=== PATIENT | female | born 1985 | race Caucasian/White ===

== ENCOUNTER 2016-10-16 18:50 | Emergency (ER) | payer OTHER ==
[~2016-10-16] VITALS: Ht 165.1 cm; Wt 114.2 kg
[2016-10-16 18:56] VITALS: TEMP 37; Ht 165.1 cm; Wt 114.2 kg
[2016-10-16] MEDS ORDERED: HYDROCODONE/ACETAMOPHEN 5/325MG TAB PO STA (19:14)
--- NOTE | 2016-10-16 20:02 | EMERGENCY ROOM VISIT NOTE ---
History First contact with patient: 19:02 Chief Complaint: OTHER COMPLAINT Stated Complaint: RIGHT NIPPLE A BOOB VERY SORE INFLAMED History of Present Illness The patient is a 31 year old female who presents to the Emergency Room with complaints of pain and swelling of her right nipple that started last night. She denies any previous history of this. She denies any trauma to her breast or nipple. She is not currently breast-feeding, denies and states she is just now finishing her period. She denies any problems with the left breast. She denies fevers/chills, drainage from the nipple, painful or swollen lymph nodes. Review of Systems GENERAL: Denies fevers, chills, malaise, fatigue, unintentional changes in weight. HEENT: Denies dizziness, visual problems, hearing loss, tinnitus. Denies difficulty swallowing or oral lesions. PULMONARY: Denies cough, shortness of breath, sputum production or hemoptysis. CARDIOVASCULAR: Denies chest pain, palpitations, dyspnea on exertion, orthopnea or peripheral edema. GASTROINTESTINAL: Denies diarrhea, constipation, nausea, vomiting, or abdominal pain. GENITOURINARY: Denies dysuria, frequency, urgency or nocturia. NEUROLOGIC: Denies history of epilepsy, CVA, TIA or chronic headaches. MUSCULOSKELETAL: Denies history of joint tenderness/swelling. SKIN: Denies rashes or lesions. PSYCHIATRIC: Denies history of depression or mental illness. ENDOCRINE: Denies history of diabetes, thyroid disorders, abnormal hair growth or sexual dysfunction. Past Medical/Surgical History Medical Problems: (1) Abdominal pain (2) Acute bacterial tonsillitis (3) Acute bacterial tonsillitis (4) Back strain (5) Back strain (6) Dysphagia (7) Dysphagia (8) Influenza-like symptoms (9) Neck muscle strain (10) Neck muscle strain (11) Pneumonia (12) Sore throat (13) Tonsillitis with exudate (14) Tonsillitis with exudate (15) Torticollis (16) Torticollis Surgical Problems: (1) [place] teeth extracted Family History Cancer Diabetes mellitus FHx: lung disease Hypertension Kidney disease Kidney stones Social History Smoking Status: Current Every Day Smoker Alcohol Use: occasionally Marital Status: single Housing Status: lives alone, other Occupation Status: employed Current/Historical Medications Scheduled Cephalexin Monohydrate (Keflex), 500 MG PO QID Allergies Coded Allergies: No Known Allergies (Verified , 10/16/16) Physical Exam Vital Signs Date Time Temp Pulse Resp B/P Pulse Ox O2 Delivery O2 Flow Rate FiO2 10/16/16 20:38 76 18 140/98 98 Room Air 10/16/16 18:56 37.0 102 18 148/109 94 Room Air Physical Exam CONSTITUTIONAL: Well appearing and well nourished, obese. No acute distress. Alert and oriented X 4 with normal affect. HEENT: Normocephalic, atraumatic. Pupils equal, round and reactive to light, EOMI. NECK: Supple, full active range of motion without discomfort. RESPIRATORY: Clear to auscultation bilaterally with no wheezing, crackles, rhonchi or stridor. Equal expansion bilaterally. CARDIOVASCULAR: Regular rate and rhythm with no murmurs, rubs or gallops. Normal peripheral perfusion. No edema. CHEST WALL: There is tenderness to the right nipple and generalized pain of the right breast. There is a firm mass beneath the right nipple that is exquisitely tender to palpation. No erythema or warmth of the surrounding skin. GASTROINTESTINAL: Soft, nontender, nondistended. Bowel sounds present in all quadrants. MUSCULOSKELETAL: Full range of motion of all joints without discomfort. INTEGUMENTARY: No rash or other significant dermatologic conditions noted. NEUROLOGIC: Cranial nerves II-XII grossly intact. No focal neurologic deficits noted. Medical Decision & Procedures ER Provider Diagnostic Interpretation: RIGHT BREAST ULTRASOUND CLINICAL HISTORY: Right nipple tenderness. COMPARISON STUDY: No previous studies for comparison. TECHNIQUE: Sonography of the right breast with specific attention to the periareolar soft tissues was performed. Comparison sonography left breast was performed. FINDINGS: No definite fluid collection is identified to suggest an abscess evaluation of the soft tissues deep to the nipple is difficult due to shadowing. IMPRESSION: No definite right breast abscess identified although evaluation deep to the right nipple is difficult due to artifact. If persistent symptoms, short-term sonographic follow up is recommended. Medications Administered Medications (Trade) Dose Ordered Sig/Filippo Route Start Time Stop Time Status Last Admin Dose Admin Acetaminophen/ Hydrocodone Bitart ([place] 5/325 Tab) 1 tab NOW STAT PO 10/16/16 19:14 10/16/16 19:18 DC 10/16/16 19:29 1 TAB Cephalexin Monohydrate (Keflex Cap) 500 mg NOW ONCE PO 10/16/16 20:45 10/16/16 20:46 DC 10/16/16 21:03 500 MG Medical Decision Patient has a firm, painful lump beneath the right nipple that started acutely, concerning for possible abscess versus ductal obstruction. No evidence of cellulitis noted. Ultrasound ordered to evaluate for abscess, no obvious fluid collection noted. She was slightly tachycardic on arrival, this is resolved after pain control. Given concern for possible infection, will place patient on Keflex. Patient also encouraged to use warm compresses and NSAIDs for pain control. Patient instructed to follow closely with her PCP, and given strict return precautions should her symptoms worsen, she verbalized understanding. Impression Primary Impression: Pain of right breast Departure Information Dispostion Home / Self-Care Condition GOOD Prescriptions Cephalexin Monohydrate (Keflex) 500 Mg Cap 500 MG PO QID for 7 Days, #28 CAP Prov: Lauren Jarvis CRNP 10/16/16 Referrals Delisa Watkins DO (PCP) Patient Instructions ED Infec Breast, [facility] Additional Instructions Follow-up with her PCP on Wednesday to have the area rechecked. Apply warm compresses to the area for comfort. You may take ibuprofen 600 mg every 6-8 hours as needed for pain. Please return to the ER for worsening symptoms, including severe worsening pain , increased redness or swelling, pus drainage, streaking, fever/chills, or any other concerns.
--- NOTE | 2016-10-16 20:18 | DIAGNOSTIC IMAGING REPORT ---
RIGHT BREAST ULTRASOUND CLINICAL HISTORY: Right nipple tenderness. COMPARISON STUDY: No previous studies for comparison. TECHNIQUE: Sonography of the right breast with specific attention to the periareolar soft tissues was performed. Comparison sonography left breast was performed. FINDINGS: No definite fluid collection is identified to suggest an abscess evaluation of the soft tissues deep to the nipple is difficult due to shadowing. IMPRESSION: No definite right breast abscess identified although evaluation deep to the right nipple is difficult due to artifact. If persistent symptoms, short-term sonographic follow up is recommended. Electronically signed by: Sadi Dior M.D. 10/16/2016 8:17 PM Dictated Date/Time: 10/16/2016 8:13 PM
[2016-10-16 20:38] VITALS: BP 140/98; PULSE 76; O2SAT 98
[2016-10-16] MEDS ORDERED: CEPH500C PO (20:44)
[2016-10-16] MEDS ORDERED: CEPHALEXIN MONOHYDRATE 250 MG CAP PO ONE (20:45)
== END 2016-10-16 21:07 | disposition home or self-care (01) ==
LOC: C.EDB 18:51 → C.EDD 21:07
DX: N63 Unspecified lump in breast (principal); N64.4 Mastodynia; Z87.01 Personal history of pneumonia (recurrent); Z80.9 Family history of malignant neoplasm, unspecified; Z83.3 Family history of diabetes mellitus; Z82.49 Family history of ischemic heart disease and other diseases of the circulatory system; Z84.1 Family history of disorders of kidney and ureter; F17.210 Nicotine dependence, cigarettes, uncomplicated

== ENCOUNTER 2017-01-19 20:36 | Emergency (ER) | payer OTHER ==
[~2017-01-19] VITALS: Ht 165.1 cm; Wt 116.7 kg
[2017-01-19 20:48] VITALS: TEMP 36.6; Ht 165.1 cm; Wt 116.7 kg
[2017-01-19] MEDS ORDERED: KETOROLAC TROMETHAMINE 60 MG/2 ML VIAL IM STA (21:09)
[2017-01-19] MEDS ORDERED: MULT-506 PO (21:10)
[2017-01-19] MEDS ORDERED: IBUP-103 PO (21:10)
[2017-01-19] MEDS ORDERED: PRED50TA PO (21:11)
[2017-01-19] MEDS ORDERED: CYCL10TA6 PO (21:11)
[2017-01-19] MEDS ORDERED: NORCO 5/325MG HOME PACK PO ONE (21:15)
[2017-01-19 21:30] VITALS: BP 134/72; PULSE 72; O2SAT 98
--- NOTE | 2017-01-20 00:08 | EMERGENCY ROOM VISIT NOTE ---
ED Visit Note First contact with patient: 20:57 CHIEF COMPLAINT: Low back pain HISTORY OF PRESENT ILLNESS: This 31-year-old female patient presents to the emergency department complaining of pain in the low back which began several years ago. The patient states that she has intermittent flareups of low back pain and does follow with her primary care physician and a chiropractor for this. She states that she has had some slowly worsening symptoms over the past several days without distinct injury or trauma. The pain was gradual in onset, is now constant and worse with movement. The patient notes the pain as dull and a 6/10. The patient has taken ibuprofen without significant relief of the pain. The patient denies any loss of control of their bowel or bladder functions. There has been no leg numbness or weakness, and no change in sensation. No nausea or vomiting or abdominal pain. No chest pain or shortness of breath. No dysuria or increased urinary frequency. No history of back surgery. REVIEW OF SYSTEMS: A review of systems was performed with positives and pertinent negatives listed in the history of present illness. All other systems were reviewed and are negative. ALLERGIES: No known allergies MEDICATIONS: No chronic medications PMH: Otherwise healthy SOCIAL HISTORY: Employed and lives locally PHYSICAL EXAM: VITALS: Vitals are noted on the nurse's note and reviewed by myself. Vital signs stable. GENERAL: White female, in no acute distress, nondiaphoretic, well-developed well -nourished. SKIN: The skin was without rashes, erythema, edema, or bruising. Capillary refill less than 2 seconds. NECK: Supple without nuchal rigidity. No cervical spine tenderness. No paraspinous muscle tenderness. HEART: Regular rate and rhythm without murmurs gallops or rubs. LUNGS: Clear to auscultation bilaterally without wheezes, rales or rhonchi. ABDOMEN: Positive bowel sounds x 4. Normal tympanic percussion. Soft, nontender, without masses or organomegaly. Germain sign negative. MUSCULOSKELETAL: No muscle atrophy, erythema, or edema noted of the back. There is positive tenderness over the lumbar spinous processes. There is no tenderness over the paraspinous muscles. There is no tenderness over the thoracic spine paraspinous muscles. There are noted muscle spasms present in the lower spine. The patient is slow to move around with maximum tenderness with leaning forward. Negative straight leg raise test. NEURO: Patient was alert and oriented to person place and time. Normal sensation to light and sharp touch. Deep tendon reflexes 2+ in the lower extremities. Dorsalis pedis pulse 2+ bilaterally. Strength 5/5 and equal in the bilateral lower extremities. EMERGENCY DEPARTMENT COURSE: Physical exam and history were performed. Nursing notes and EMR were reviewed. The patient appears to have low back pain off-and-on for the past few years. This appears to be exacerbated today, prompting her presentation. On examination the patient does have some muscle spasm in the lower spine where she is maximally tender. She does not have neurologic deficit or evidence of infection/cauda equina. I discussed options of care with the patient, and she would like to defer imaging at this time. This does seem reasonable as she states that she has had relatively recent x- rays as an outpatient. The patient will be given 60 mg IM Toradol. I will also provide her a home pack of Vicodin. She'll be given prescriptions for Flexeril and prednisone. She will need to follow with her PCP for further care and management. She may be a good candidate for physical therapy if symptoms persist. She was otherwise invited back to the ER with any new, worsening, or concerning symptoms. Problem List Medical Problems: (1) Abdominal pain Status: Resolved (2) Acute bacterial tonsillitis Status: Resolved (3) Acute bacterial tonsillitis Status: Resolved (4) Back strain Status: Resolved (5) Back strain Status: Resolved (6) Dysphagia Status: Resolved (7) Dysphagia Status: Resolved (8) Influenza-like symptoms Status: Resolved (9) Neck muscle strain Status: Resolved (10) Neck muscle strain Status: Resolved (11) Pneumonia Status: Resolved (12) Sore throat Status: Resolved (13) Tonsillitis with exudate Status: Resolved (14) Tonsillitis with exudate Status: Resolved (15) Torticollis Status: Resolved (16) Torticollis Status: Resolved Surgical Problems: (1) [place] teeth extracted Status: Resolved Current/Historical Medications Scheduled Cyclobenzaprine Hcl (Flexeril), 10 MG PO TID Multivitamin (Multivitamin), 1 TAB PO DAILY Prednisone (Prednisone), 50 MG PO DAILY Scheduled PRN Ibuprofen Tab (Advil), 400-600 MG PO Q6H PRN for Pain Allergies Coded Allergies: No Known Allergies (Verified , 01/19/17) Vital Signs Date Time Temp Pulse Resp B/P (MAP) Pulse Ox O2 Delivery O2 Flow Rate FiO2 01/19/17 21:30 72 16 134/72 98 01/19/17 20:48 36.6 75 20 146/97 98 Room Air Medications Administered Medications (Trade) Dose Ordered Sig/Filippo Route Start Time Stop Time Status Last Admin Dose Admin Ketorolac Tromethamine (Toradol Inj) 60 mg NOW STAT IM 01/19/17 21:09 01/19/17 21:10 DC 01/19/17 21:09 60 MG Acetaminophen/ Hydrocodone Bitart ([place] 5/325mg Home Pack) 1 homepack UD ONCE PO 01/19/17 21:15 01/19/17 21:16 DC 01/19/17 21:15 1 HOMEPACK Departure Information Impression Primary Impression: Low back pain Dispostion Home / Self-Care Condition GOOD Prescriptions Prednisone (Prednisone) 50 Mg Tab 50 MG PO DAILY for 4 Days, #4 TAB Prov: Junaid Hurd PA-C 01/19/17 Cyclobenzaprine Hcl (FLEXERIL) 10 Mg Tab 10 MG PO TID for 5 Days, #15 TAB Prov: Junaid Hurd PA-C 01/19/17 Referrals No Doctor, Assigned Forms HOME CARE DOCUMENTATION FORM, Work Instructions, Additional Instructions: Pt seen in ER on 01/19/17 IMPORTANT VISIT INFORMATION Patient Instructions [facility] Additional Instructions You were seen and evaluated today on an emergency basis only. This is not a substitute for, or an effort to provide, complete comprehensive medical care. It is not possible to recognize and treat all injuries or illnesses in a single emergency department visit. For this reason it is recommended that you followup with your primary care physician within the next week if symptoms persist. For baseline pain relief you may alternate ibuprofen and acetaminophen every 4 hours for pain control. Take 600 mg ibuprofen (Advil) and then 4 hours later take 1000 mg acetaminophen (Tylenol). Do not take more than 3000 mg acetaminophen in a single day. [place] (hydrocodone/acetaminophen) 5/325 mg (homepack) ONE tablet by mouth every 6 hours as needed for worsening breakthrough pain. Do not drink or drive on [place]. This medication will likely make you tired. Do not take [place] and Tylenol at the same time as both contain acetaminophen. [place] may cause constipation. You may wish to take an [id number] stool softener like Colace if this occurs. Flexeril 1 tablet up to 3 times a day as needed for muscle spasms. No driving, working, or alcohol use with Flexeril. Take prednisone as prescribed You are welcome to return to the emergency department anytime with new, worsening, or concerning symptoms. Work Instructions Additional Work Instructions: Pt seen in ER on 01/19/17
== END 2017-01-19 21:49 | disposition home or self-care (01) ==
LOC: C.EDB 20:37 → C.EDD 21:49
DX: M54.5 Low back pain (principal); G89.29 Other chronic pain; Z87.01 Personal history of pneumonia (recurrent); Z79.899 Other long term (current) drug therapy

== ENCOUNTER 2017-02-19 12:02 | Emergency (ER) | payer OTHER ==
[~2017-02-19] VITALS: Ht 165.1 cm; Wt 112.9 kg
[~2017-02-19 12:02] MED LIST: IBUP-103 PO; MULT-506 PO
[2017-02-19 12:12] VITALS: TEMP 36.7; Ht 165.1 cm; Wt 112.9 kg
[2017-02-19] MEDS ORDERED: NAPR500T3 PO (12:32)
[2017-02-19] MEDS ORDERED: CYM30 PO (12:32)
[2017-02-19] MEDS ORDERED: ATV1 PO (12:32)
[2017-02-19] MEDS ORDERED: DROS1TAB24 PO (12:32)
[2017-02-19] MEDS ORDERED: OPTIRAY 320 IV PRN (12:45)
[2017-02-19 13:14] LABS: URINE APPEARANCE CLEAR (CLEAR); URINE BILIRUBIN NEG (NEG); URINE COLOR YELLOW; URINE EPITHELIAL CELL AUTO >30 /lpf (0-5); URINE NITRITE NEG (NEG); URINE SPECIFIC GRAVITY 1.021 (1.000-1.030); UROBILINOGEN NEG (NEG)
[2017-02-19 13:14] LABS: BASO % 0.4 %; BASO ABS # 0.03 K/uL (0-0.2); COMPLETE YES; EOS % 1.3 %; HEMATOCRIT 42.1 % (37-47); IG% 0.1 %; LYMPH % 25.8 %; LYMPH ABS # 1.91 K/uL (1.2-3.4); MEAN CELL VOLUME 86.6 fL (80-100); MEAN CORPUSCULAR HEMOGLOBIN 30.2 pg (25-34); MEAN CORPUSCULAR HGB CONC 34.9 g/dl (32-36); MONO % 6.5 %; NEUT % 65.9 %; PLATELET COUNT 321 K/uL (130-400); RED BLOOD COUNT 4.86 M/uL (4.2-5.4); WHITE BLOOD COUNT 7.41 K/uL (4.8-10.8)
[2017-02-19 13:19] LABS: MANUAL MICROSCOPIC REQUIRED? NO; REVIEW REQ? NO
[2017-02-19 13:33] LABS: ALT/SGPT 21 U/L (12-78); AST/SGOT 8 U/L (15-37); BLOOD UREA NITROGEN 10 mg/dl (7-18); BUN/CREATININE RATIO 12.5 (10-20); CALCIUM 9.4 mg/dl (8.5-10.1); CARBON DIOXIDE 23 mmol/L (21-32); CHLORIDE 110 mmol/L (98-107); CREATININE 0.76 mg/dl (0.60-1.20); GLUCOSE 91 mg/dl (70-99); SODIUM 139 mmol/L (136-145)
[2017-02-19 13:35] LABS: ALKALINE PHOSPHATASE 116 U/L (45-117)
[2017-02-19] MEDS ORDERED: ONDANSETRON INJ 2 MG/ML 2 ML VIAL IV STA (13:49)
--- NOTE | 2017-02-19 15:33 | DIAGNOSTIC IMAGING REPORT ---
ABD/PELVIS IV AND ORAL CONT CLINICAL HISTORY: 31 years-old Female presenting with abd pain and diarrhea eval for colitis. TECHNIQUE: Multidetector CT of the abdomen and pelvis was performed after the administration of oral and intravenous contrast. IV contrast: 120 mL of Optiray 320. A dose lowering technique was used consistent with the principles of ALARA (as low as reasonably achievable). COMPARISON: 09/16/2009. CT DOSE (mGy.cm): The estimated cumulative dose is 1703.17 mGy.cm. FINDINGS: [employer] topogram: Unremarkable. Lung bases: Mosaic attenuation at the lung bases likely suggest small airways disease. This is more prominent on the current exam comparison to prior. Normal heart size. No pericardial or pleural effusion. Liver: Normal morphology. No liver lesion. Patent hepatic vasculature. Biliary: No intrahepatic or extrahepatic biliary ductal dilatation. Normal gallbladder. Pancreas: Normal. Spleen: Normal. Adrenal glands: Normal. Kidneys and ureters: Normal. No hydronephrosis. Bladder: Incompletely evaluated secondary to underdistention. Pelvic organs: Uterus normal. Ovaries prominent bilaterally with multiple follicles/functional cysts, the largest on the left measuring 2.5 cm. Bowel: Normal appendix. No bowel obstruction. Oral contrast has transited to the rectum. Allowing for under distention of the colon, no significant bowel wall thickening is apparent. Peritoneal cavity: No free fluid or intraperitoneal gas. Vasculature: Aorta and IVC patent and normal in caliber. Lymph nodes: No enlarged lymph nodes in the abdomen or pelvis. Abdominal wall: Normal. Musculoskeletal: Normal. IMPRESSION: 1. No evidence of colitis or bowel pathology. Normal appendix. 2. Prominent ovaries bilaterally with multiple follicles/functional cysts. This appearance is likely within the range of normal, however, the ovaries are better evaluated with pelvic ultrasound. 3. Mosaic attenuation at the lung bases suggest small airways disease. Electronically signed by: Sumeet Cortez M.D. 02/19/2017 3:31 PM Dictated Date/Time: 02/19/2017 3:25 PM
[2017-02-19] MEDS ORDERED: METRONIDAZOLE 250 MG TAB PO STA (16:36)
[2017-02-19 17:27] VITALS: BP 128/79; PULSE 65; O2SAT 99
--- NOTE | 2017-02-19 17:32 | DIAGNOSTIC IMAGING REPORT ---
PELVIC COMPLETE NON OB HISTORY: 31 years-old Female acute lower pelvic pain. COMPARISON: CT abdomen and pelvis 02/19/2017 TECHNIQUE: Multiple real-time static images of the deep pelvic structures were obtained transabdominally and transvaginally assessing grayscale appearance, color and spectral analysis FINDINGS: TRANSABDOMINAL: Anteflexed uterus is seen, 8.9 x 4.8 x 5.0 cm. Endometrium is within normal limits, 0.6 cm. Right ovary measures 3.1 x 1.7 x 1.5 cm with arterial inflow documented. Left ovary measures 5.2 x 3.1 x 3.5 cm. Hypoechoic structure within the left ovary is seen, 2.8 x 2.2 x 2.7 cm. Arterial inflow is documented within the left ovary. TRANSVAGINAL: Heterogenous hypoechoic lesion of the intramural posterior fundal uterus is seen measuring up to 1.6 cm compatible with fibroid. Additional smaller fibroids noted. Uterus measures 8.8 x 5.1 x 6.1 cm. Endometrium measures 0.7 cm. Right ovary measures 4.6 x 2.7 x 3.5 cm. Arterial inflow is seen within the right ovary. Thick walled centrally hypoechoic lesion of the right ovary is seen measuring up to 1.3 cm suggesting involuting follicle. Left ovary measures 4.3 x 2.1 x 4.0 cm. Follicle left ovary measures up to 2.1 cm. Arterial inflow is documented within the left ovary. No significant free pelvic fluid. IMPRESSION: 1. No evidence of ovarian torsion. 2. Several intramural uterine fibroids are seen, largest of which measures 1.6 cm within the posterior fundal uterus. 3. Probable involuting follicle of the right ovary, 1.3 cm. The above report was generated using voice recognition software. It may contain grammatical, syntax or spelling errors. Electronically signed by: Jim Mays M.D. 02/19/2017 5:30 PM Dictated Date/Time: 02/19/2017 5:26 PM
[2017-02-19] MEDS ORDERED: METR-163 PO (17:46)
--- NOTE | 2017-02-19 18:58 | EMERGENCY ROOM VISIT NOTE ---
History Report prepared by Eliu: Aric Wong Under the Supervision of: Dr. Hemant García M.D. First contact with patient: 12:23 Chief Complaint: ABDOMINAL PAIN Stated Complaint: SEVERE STOMACH PAIN, COFFEE GROUND STOOLS History of Present Illness The patient is a 31 year old female who presents to the Emergency Room with complaints of episodes of abdominal pain that started 3 days ago. She says that the episodes last anywhere from a few seconds to a few minutes, and is severe. The patient notes that nothing in particular brings the pain on, and episodes have been occurring around once per hour. She says that an episode just occurred in the waiting room. She says that the pain is as severe as contractions that she had during her . The patient states that the pain is right in the middle, and does not radiate to her sides. She has not been eating, and the pain wakes her up out of her sleep. The patient adds that the pain makes her sweat and shake. She says that she has had diarrhea the past few days, but she has to push hard for anything to come out. Occasionally, the diarrhea has looked like coffee grounds with a black color. The patient says that she vomited on the first day of symptoms because she was in so much pain, but she has not vomited since then. There was no blood in her vomit, and the vomit looked like mucous. She states that 2 years ago, she had similar episodes of pain that lasted months, but only in the morning. She eventually went to see a doctor for it, and was going to be tested for Crohn's Disease, but she left before getting the equipment for a stool sample. The pain went away on its own. She denies any fevers or urinary symptoms. She notes that the only thing that has decreased her pain has been smoking marijuana. She has had no abdominal surgeries, and has no history of C-sections. The patient says that she used to take Ibuprofen for chronic back problems, but was recently prescribed Naproxen, so she does not take Ibuprofen anymore. She has rarely needed to use the Naproxen either. Source of History: patient Onset: 3 days ago Position: abdomen Symptom Intensity: severe Timing: other (episodes) Modifying Factors (Relieving): other (marijuana) Associated Symptoms: + vomiting, + diarrhea, No fevers, No urinary symptoms Note: Associated symptoms: Pain makes her sweat and shake. Stools have occasionally looked like coffee grounds and black. No blood in vomit. Review of Systems See HPI for pertinent positives & negatives. A total of 10 systems reviewed and were otherwise negative. Past Medical & Surgical Medical Problems: (1) Abdominal pain (2) Acute bacterial tonsillitis (3) Acute bacterial tonsillitis (4) Back strain (5) Back strain (6) Dysphagia (7) Dysphagia (8) Influenza-like symptoms (9) Neck muscle strain (10) Neck muscle strain (11) Pneumonia (12) Sore throat (13) Tonsillitis with exudate (14) Tonsillitis with exudate (15) Torticollis (16) Torticollis Surgical Problems: (1) [place] teeth extracted Family History Cancer Diabetes mellitus FHx: lung disease Hypertension Kidney disease Kidney stones Social History Smoking Status: Current Every Day Smoker Alcohol Use: occasionally Drug Use: marijuana Marital Status: single Housing Status: lives alone, other Occupation Status: employed Current/Historical Medications Scheduled Drospirenone-Ethinyl Estradiol (An), 1 TAB PO DAILY Duloxetine HCl (Duloxetine HCl), 30 MG PO BID Lorazepam (Lorazepam), 1 TAB PO HS Metronidazole (Flagyl), 500 MG PO TID Scheduled PRN Naproxen (Naproxen), 500 MG PO BID PRN for Pain Allergies Coded Allergies: No Known Allergies (Verified , 01/19/17) Physical Exam Vital Signs Date Time Temp Pulse Resp B/P (MAP) Pulse Ox O2 Delivery O2 Flow Rate FiO2 02/19/17 17:27 65 16 128/79 99 Room Air 02/19/17 15:28 75 20 115/78 95 Room Air 02/19/17 14:04 72 20 112/75 95 Room Air 02/19/17 12:12 36.7 84 20 142/87 95 Room Air Physical Exam Constitutional: Vital signs reviewed. Eyes: Pupils are equal round reactive to light. Conjunctiva are noninjected. ENT: Pharynx is clear without erythema or exudate. Mucous membranes are moist. Neck supple without meningeal signs. Respiratory: Clear to auscultation bilaterally. Breath sounds are equal bilaterally. Cardiovascular: Regular rate and rhythm. No rubs or gallops. GI: Diffuse mild tenderness without guarding. Soft and nondistended. Bowel sounds are present. Rectal: Guaiac negative brown stool. Musculoskeletal: No peripheral edema. No lower extremity tenderness. Integumentary: No cyanosis. Neurological: The patient is awake and alert. No focal deficits. Psychiatric: Normal affect. Medical Decision & Procedures ER Provider Diagnostic Interpretation: Radiology results as stated below per my review and the radiologist's interpretation: ABD/PELVIS IV AND ORAL CONT CLINICAL HISTORY: 31 years-old Female presenting with abd pain and diarrhea eval for colitis. TECHNIQUE: Multidetector CT of the abdomen and pelvis was performed after the administration of oral and intravenous contrast. IV contrast: 120 mL of Optiray 320. A dose lowering technique was used consistent with the principles of ALARA (as low as reasonably achievable). COMPARISON: 09/16/2009. CT DOSE (mGy.cm): The estimated cumulative dose is 1703.17 mGy.cm. FINDINGS: Shop Repairer topogram: Unremarkable. Lung bases: Mosaic attenuation at the lung bases likely suggest small airways disease. This is more prominent on the current exam comparison to prior. Normal heart size. No pericardial or pleural effusion. Liver: Normal morphology. No liver lesion. Patent hepatic vasculature. Biliary: No intrahepatic or extrahepatic biliary ductal dilatation. Normal gallbladder. Pancreas: Normal. Spleen: Normal. Adrenal glands: Normal. Kidneys and ureters: Normal. No hydronephrosis. Bladder: Incompletely evaluated secondary to underdistention. Pelvic organs: Uterus normal. Ovaries prominent bilaterally with multiple follicles/functional cysts, the largest on the left measuring 2.5 cm. Bowel: Normal appendix. No bowel obstruction. Oral contrast has transited to the rectum. Allowing for under distention of the colon, no significant bowel wall thickening is apparent. Peritoneal cavity: No free fluid or intraperitoneal gas. Vasculature: Aorta and IVC patent and normal in caliber. Lymph nodes: No enlarged lymph nodes in the abdomen or pelvis. Abdominal wall: Normal. Musculoskeletal: Normal. IMPRESSION: 1. No evidence of colitis or bowel pathology. Normal appendix. 2. Prominent ovaries bilaterally with multiple follicles/functional cysts. This appearance is likely within the range of normal, however, the ovaries are better evaluated with pelvic ultrasound. 3. Mosaic attenuation at the lung bases suggest small airways disease. Electronically signed by: Sumeet Cortez M.D. 02/19/2017 3:31 PM Dictated Date/Time: 02/19/2017 3:25 PM PELVIC COMPLETE NON OB HISTORY: 31 years-old Female acute lower pelvic pain. COMPARISON: CT abdomen and pelvis 02/19/2017 TECHNIQUE: Multiple real-time static images of the deep pelvic structures were obtained transabdominally and transvaginally assessing grayscale appearance, color and spectral analysis FINDINGS: TRANSABDOMINAL: Anteflexed uterus is seen, 8.9 x 4.8 x 5.0 cm. Endometrium is within normal limits, 0.6 cm. Right ovary measures 3.1 x 1.7 x 1.5 cm with arterial inflow documented. Left ovary measures 5.2 x 3.1 x 3.5 cm. Hypoechoic structure within the left ovary is seen, 2.8 x 2.2 x 2.7 cm. Arterial inflow is documented within the left ovary. TRANSVAGINAL: Heterogenous hypoechoic lesion of the intramural posterior fundal uterus is seen measuring up to 1.6 cm compatible with fibroid. Additional smaller fibroids noted. Uterus measures 8.8 x 5.1 x 6.1 cm. Endometrium measures 0.7 cm. Right ovary measures 4.6 x 2.7 x 3.5 cm. Arterial inflow is seen within the right ovary. Thick walled centrally hypoechoic lesion of the right ovary is seen measuring up to 1.3 cm suggesting involuting follicle. Left ovary measures 4.3 x 2.1 x 4.0 cm. Follicle left ovary measures up to 2.1 cm. Arterial inflow is documented within the left ovary. No significant free pelvic fluid. IMPRESSION: 1. No evidence of ovarian torsion. 2. Several intramural uterine fibroids are seen, largest of which measures 1.6 cm within the posterior fundal uterus. 3. Probable involuting follicle of the right ovary, 1.3 cm. The above report was generated using voice recognition software. It may contain grammatical, syntax or spelling errors. Electronically signed by: Jim Mays M.D. 02/19/2017 5:30 PM Dictated Date/Time: 02/19/2017 5:26 PM Laboratory Results 02/19/17 12:56 Red Blood Count 4.86, Mean Corpuscular Volume 86.6, Mean Corpuscular Hemoglobin 30.2, Mean Corpuscular Hemoglobin Concent 34.9, Mean Platelet Volume 10.0, Neutrophils (%) (Auto) 65.9, Lymphocytes (%) (Auto) 25.8, Monocytes (%) (Auto) 6.5, Eosinophils (%) (Auto) 1.3, Basophils (%) (Auto) 0.4, Neutrophils # (Auto) 4.88, Lymphocytes # (Auto) 1.91, Monocytes # (Auto) 0.48, Eosinophils # (Auto) 0.10, Basophils # (Auto) 0.03 02/19/17 12:56 Test 02/19/17 12:55 02/19/17 12:56 Urine Color YELLOW Urine Appearance CLEAR (CLEAR) Urine pH 6.0 (4.5-7.5) Urine Specific Carver 1.021 (1.000-1.030) Urine Protein 2+ (NEG) Urine Glucose (UA) NEG (NEG) Urine Ketones NEG (NEG) Urine Occult Blood NEG (NEG) Urine Nitrite NEG (NEG) Urine Bilirubin NEG (NEG) Urine Urobilinogen NEG (NEG) Urine Leukocyte Esterase TRACE (NEG) Urine WBC (Auto) 10-30 /hpf (0-5) Urine RBC (Auto) 5-10 /hpf (0-4) Urine Hyaline Casts (Auto) 5-10 /lpf (0-5) Urine Epithelial Cells (Auto) >30 /lpf (0-5) Urine Bacteria (Auto) NEG (NEG) Urine Test NEG (NEG) White Blood Count 7.41 K/uL (4.8-10.8) Red Blood Count 4.86 M/uL (4.2-5.4) Hemoglobin 14.7 g/dL (12.0-16.0) Hematocrit 42.1 % (37-47) Mean Corpuscular Volume 86.6 fL (80-100) Mean Corpuscular Hemoglobin 30.2 pg (25-34) Mean Corpuscular Hemoglobin Concent 34.9 g/dl (32-36) Platelet Count 321 K/uL (130-400) Mean Platelet Volume 10.0 fL (7.4-10.4) Neutrophils (%) (Auto) 65.9 % Lymphocytes (%) (Auto) 25.8 % Monocytes (%) (Auto) 6.5 % Eosinophils (%) (Auto) 1.3 % Basophils (%) (Auto) 0.4 % Neutrophils # (Auto) 4.88 K/uL (1.4-6.5) Lymphocytes # (Auto) 1.91 K/uL (1.2-3.4) Monocytes # (Auto) 0.48 K/uL (0.11-0.59) Eosinophils # (Auto) 0.10 K/uL (0-0.5) Basophils # (Auto) 0.03 K/uL (0-0.2) RDW Standard Deviation 46.4 fL (36.4-46.3) RDW Coefficient of Variation 14.5 % (11.5-14.5) Immature Granulocyte % (Auto) 0.1 % Immature Granulocyte # (Auto) 0.01 K/uL (0.00-0.02) Anion Gap 6.0 mmol/L (3-11) Est Creatinine Clear Calc Drug Dose 134.4 ml/min Estimated GFR () 121.1 Estimated GFR (Non- 104.5 BUN/Creatinine Ratio 12.5 (10-20) Calcium Level 9.4 mg/dl (8.5-10.1) Total Bilirubin 0.3 mg/dl (0.2-1) Direct Bilirubin < 0.1 mg/dl (0-0.2) Aspartate Amino Transf (AST/SGOT) 8 U/L (15-37) Alanine Aminotransferase (ALT/SGPT) 21 U/L (12-78) Alkaline Phosphatase 116 U/L (45-117) Total Protein 8.3 gm/dl (6.4-8.2) Albumin 3.7 gm/dl (3.4-5.0) Lipase 164 U/L (73-393) Laboratory results as reviewed by me. Medications Administered Medications (Trade) Dose Ordered Sig/Filippo Route Start Time Stop Time Status Last Admin Dose Admin Ondansetron HCl (Zofran Inj) 4 mg NOW STAT IV 02/19/17 13:49 02/19/17 13:50 DC 02/19/17 13:57 4 MG Metronidazole (Flagyl Tab) 500 mg NOW STAT PO 02/19/17 16:36 02/19/17 16:37 DC 02/19/17 17:31 500 MG ED Course 1226: The patient was evaluated in room C5. A complete history and physical exam was performed. 1349: Ordered Zofran Inj 4 mg IV. 1542: I reevaluated the patient and she says that the pain still keeps coming in waves but she has no pain currently. I discussed the test results with her. We will do a pelvic ultrasound. 1636: Ordered Flagyl Tab 500 mg PO. 175: I reevaluated the patient and talked about the test results with her. The patient verbally expressed understanding and agreement with the treatment plan. The patient will be discharged. Medical Decision This is a 31-year-old female who presents with abdominal pain and diarrhea. Differential diagnosis includes food borne illness, gastroenteritis, dehydration , irritable bowel syndrome, inflammatory bowel disease, C. difficile infection. I did perform a limited focused review of portions of the patient's old chart on the electronic medical record. The patient was seen here last month for low back pain. She was discharged on Prednisone and Flexeril. I did evaluate the patient as noted above. IV access was established. I did treat patient with Zofran IV. I did order and review the patient's blood work as noted in the electronic medical record. Her white blood cell count is not elevated. Urinalysis was obtained but appears to be a contaminated specimen. She denies any urinary symptoms. Urine test was negative. I did order a CT of the abdomen and pelvis. I did review the images myself as well as the radiology report as described above.There is no evidence of acute process on the CT scan. She was noted to have multiple pelvic cysts. I did reevaluate the patient. She stated that she still has occasional pain. I did order a pelvic ultrasound to evaluate for torsion. She has fibroids. I did also order stool testing. Her C. difficile antigen testing came back positive. I did treat her with Flagyl. I did discuss the test results with the patient. She was discharged home with a prescription for Flagyl and will follow up with her doctor and manager banking. Medication Reconcilliation Current Medication List: was personally reviewed by me Blood Pressure Screening Patient's blood pressure: Elevated blood pressure Impression Primary Impression: Abdominal pain Additional Impressions: C. difficile diarrhea Uterine fibroid Scribe Attestation The scribe's documentation has been prepared under my direct and personally reviewed by me in its entirety. I confirm that the note above accurately reflects all work, treatment, procedures, and medical decision making performed by me. Departure Information Dispostion Home / Self-Care Prescriptions Metronidazole (Flagyl) 500 Mg Tab 500 MG PO TID for 10 Days, #30 TAB Prov: Hemant García M.D. 02/19/17 Referrals Delisa Watkins DO (PCP) Forms Call Back Authorization, HOME CARE DOCUMENTATION FORM, IMPORTANT VISIT INFORMATION, Work Instructions Patient Instructions Clostridium Difficile Infec, My [facility] Additional Instructions You have been examined and treated today on an emergency basis only. This is not a substitute for, or an effort to provide, complete comprehensive medical care. It is impossible to recognize and treat all injuries or illnesses in a single emergency department visit. It is therefore important that you follow up closely with your physician. Call as soon as possible for an appointment. Return for worsening symptoms or if you develop fever or any other concerning symptoms. Avoid any alcohol while taking Flagyl. Problem Qualifiers Primary Impression: Abdominal pain Abdominal location: generalized Qualified Codes: R10.84 - Generalized abdominal pain Additional Impressions: Uterine fibroid Uterine leiomyoma location: unspecified location Qualified Codes: D25.9 - Leiomyoma of uterus, unspecified
== END 2017-02-19 18:02 | disposition home or self-care (01) ==
LOC: C.EDB 12:04 → C.EDC 18:02
DX: R10.84 Generalized abdominal pain (principal); A04.7 Enterocolitis due to Clostridium difficile; D25.9 Leiomyoma of uterus, unspecified; Z87.01 Personal history of pneumonia (recurrent); Z80.9 Family history of malignant neoplasm, unspecified; Z83.3 Family history of diabetes mellitus; Z83.6 Family history of other diseases of the respiratory system; Z84.1 Family history of disorders of kidney and ureter; Z82.49 Family history of ischemic heart disease and other diseases of the circulatory system; F17.210 Nicotine dependence, cigarettes, uncomplicated; Z79.3 Long term (current) use of hormonal contraceptives; Z79.899 Other long term (current) drug therapy

== ENCOUNTER 2018-02-10 20:01 | Emergency (ER) | payer OTHER ==
[~2018-02-10] VITALS: Ht 165.1 cm; Wt 110.0 kg
[~2018-02-10 20:01] MED LIST changes: +ATV1 PO; +CYM30 PO; +DROS1TAB24 PO; -IBUP-103 PO; -MULT-506 PO; +NAPR-1231 PO
[2018-02-10 20:08] VITALS: Ht 165.1 cm; Wt 110.0 kg
[2018-02-10] MEDS ORDERED: LIDOCAINE/EPINEPHRINE 1% 20 ML VIAL INFIL ONE (21:15)
[2018-02-10] MEDS ORDERED: SULF800T23 PO (22:06)
--- NOTE | 2018-02-10 22:07 | EMERGENCY ROOM VISIT NOTE ---
History First contact with patient: 21:07 Chief Complaint: OTHER COMPLAINT Stated Complaint: PAINFUL LUMP ON RIGHT BREAST History of Present Illness The patient is a 32 year old female who presents to the Emergency Room with complaints of a painful lump on her right breast. The patient believes this may be an infected hair follicle, because she states that she had one years ago. She states that she has had an area of swelling and pain for the past 2 weeks. She has been squeezing the area daily and reports that a small amount of pus comes out each time. She denies any fevers or chills. She rates the discomfort a 4/10. Review of Systems A complete 10 point review of systems was reviewed with the patient with pertinent positives and negatives as per history of present illness. All else were negative. Past Medical/Surgical History Medical Problems: (1) Abdominal pain (2) Acute bacterial tonsillitis (3) Acute bacterial tonsillitis (4) Back strain (5) Back strain (6) Dysphagia (7) Dysphagia (8) Influenza-like symptoms (9) Neck muscle strain (10) Neck muscle strain (11) Pneumonia (12) Sore throat (13) Tonsillitis with exudate (14) Tonsillitis with exudate (15) Torticollis (16) Torticollis Surgical Problems: (1) [place] teeth extracted Family History Cancer Diabetes mellitus FHx: lung disease Hypertension Kidney disease Kidney stones Social History Smoking Status: Current Every Day Smoker Alcohol Use: occasionally Drug Use: marijuana Marital Status: single Housing Status: lives alone, other Occupation Status: employed Current/Historical Medications Scheduled Drospirenone-Ethinyl Estradiol (An), 1 TAB PO DAILY Duloxetine HCl (Duloxetine HCl), 30 MG PO BID Lorazepam (Lorazepam), 1 TAB PO HS Sulfa/Trimethoprim (Bactrim Ds 800MG/160MG), 1 TAB PO BID Scheduled PRN Naproxen (Naproxen), 500 MG PO BID PRN for Pain Physical Exam Vital Signs Date Time Temp Pulse Resp B/P (MAP) Pulse Ox O2 Delivery O2 Flow Rate FiO2 02/10/18 22:25 82 18 159/103 98 02/10/18 20:08 37.1 89 16 170/115 97 Room Air Physical Exam VITALS: Vitals are noted on the nurse's note and reviewed by myself. Vital signs stable. GENERAL: This is a 32-year-old female, in no acute distress, nondiaphoretic, well-developed well-nourished. SKIN: There is an area of fluctuance and tenderness which measures approximately 1.5 cm in diameter over the medial aspect of the right breast. A small amount of whitish pus is expressed with pressure. NEURO: Patient was alert and oriented to person place and time. Medical Decision & Procedures Medications Administered Medications (Trade) Dose Ordered Sig/Filippo Route Start Time Stop Time Status Last Admin Dose Admin Trimethoprim/ Sulfamethoxazole (Sulfameth/ Trimeth Ds 800/ 160MG Home Pack) 1 homepack UD ONCE PO 02/10/18 22:15 02/10/18 22:16 DC 02/10/18 22:24 1 HOMEPACK Procedure I examined the patient. Verbal consent was obtained to perform the procedure. After saline and Betadine cleansing and 1 mL of 1% buffered lidocaine with epinephrine anesthesia, the abscess was incised with a number 11 scalpel blade. A small amount of purulent material was released with more expressed by pressure. A swab was obtained for culture. The abscess cavity was further probed with a needle cdl b driver; no deep pockets were found. The abscess cavity was then copiously irrigated with sterile saline under pressure. Dressing was applied. The patient tolerated the procedure well. No complications were met. Medical Decision The patient was evaluated as above. She had a small abscess of the right breast. I&D was performed and a small amount of purulent material was expressed. The patient tolerated this procedure very well. A culture was obtained and is pending. Patient will be placed on Bactrim pending the culture results. She was advised to perform warm compresses at home. Conservative measures were discussed with the patient. She verbalized understanding of my assessment and treatment plan and was discharged home in good condition. Medication Reconcilliation Current Medication List: was personally reviewed by me Blood Pressure Screening Patient's blood pressure: Elevated blood pressure Blood pressure disposition: Elevated BP felt to be situational Impression Primary Impression: Abscess of right breast Departure Information Dispostion Home / Self-Care Condition GOOD Prescriptions Sulfa/Trimethoprim (Bactrim Ds 800MG/160MG) Tab 1 TAB PO BID for 6 Days, #12 TAB Prov: Katty Padilla ., BREN 02/10/18 Referrals Delisa Watkins DO (PCP) Patient Instructions My [facility] Additional Instructions You were seen in the Emergency Department for Incision and Drainage of a breast abscess. Bactrim as prescribed for a total of 7 days. Keep the wound clean and dry. Apply warm compresses to the wound several times daily to promote further drainage. Look for signs of infection of the wound including: increased pain, swelling, foul discharge, streaking, or increased temperature. If any of these are noticed you should return to the Emergency Department for further assessment and treatment. For pain control, you can use the following [id number] medicines (if >12 yo): - Regular strength (325mg/tab) Tylenol (acetaminophen) 2 tabs every 4-6 hours as needed. Do not exceed 12 tablets in a 24 hour period. Avoid taking more than 4 grams (4000 mg) of Tylenol per day. This includes any other sources of acetaminophen you may take on a regular basis. - Regular strength (200 mg/tab) Advil (ibuprofen) 1-2 tabs every 4-6 hours as needed. Do not exceed a dose of 3200 mg per day. Return to the emergency department if your symptoms worsen despite treatment course outlined above.
[2018-02-10] MEDS ORDERED: SEPTRA DS HOME PACK 1 EA VIAL PO ONE (22:15)
[2018-02-10 22:25] VITALS: BP 159/103; PULSE 82; O2SAT 98
== END 2018-02-10 22:25 | disposition home or self-care (01) ==
LOC: C.EDB 20:03 → C.EDD 22:25
DX: N61.1 Abscess of the breast and nipple (principal); F17.200 Nicotine dependence, unspecified, uncomplicated; F12.90 Cannabis use, unspecified, uncomplicated